=== PATIENT | male | born 1985 | race Caucasian/White ===

== ENCOUNTER 2018-06-06 07:26 | Inpatient (IN) | payer BC ==
[~2018-06-06] VITALS: Ht 188 cm; Wt 88.5 kg
[~2018-06-06 07:26] MED LIST: CLOBETASOL PROP0.055 TP; COLESTID 1GM1 G PO; DOXYCYCLINE 10100 MG PO; HUMIRA40 MG/0.8 IM; METHOTREXATE25 MG/M1 IM; NIZORAL SHAMPO120 M1 TP; PENTASA PO
[2018-06-06 07:57] LABS: BASO # 0.1 (0.0-0.2); BASO % 0.5 % (0.0-2.0); EOS # 0.3 (0.0-0.7); EOS % 2.5 % (0-4.0); GRAN # 8.4 (1.4-6.5); GRAN % 76.8 % (42.2-75.2); HEMATOCRIT 45.7 % (42.0-52.0); HEMOGLOBIN 15.5 g/dl (13.5-18.0); LYMPH # 1.7 (1.2-3.4); LYMPH % 15.5 % (20.0-51.0); MEAN CELL VOLUME 82 fl (80.0-100.0); MEAN CORPUSCULAR HEMOGLOBIN 28 pg (27.0-31.0); MEAN CORPUSCULAR HGB CONC 34 g/dl (33.0-37.0); MEAN PLATELET VOLUME 9.7 fl (7.4-10.4); MONO # 0.5 (0.1-0.6); MONO % 4.4 % (1.7-9.3); PLATELET COUNT 247 K/mm3 (130-400); REDCELL DISTRIBUTION WIDTH-CV 12.5 % (11.5-14.5)
[2018-06-06] MEDS ORDERED: ABSORICA30 MG PO (07:58)
[2018-06-06 08:12] LABS: ALBUMIN 4.6 gm/dL (3.5-5.0); BILIRUBIN,TOTAL 0.8 mg/dL (0.0-1.0); CALCIUM 9.6 mg/dL (8.4-10.2); CREATININE, serum 0.72 mg/dL (0.66-1.25); POTASSIUM 4.2 mmol/L (3.4-5.0); TOTAL PROTEIN 8.6 gm/dL (6.4-8.2)
[2018-06-06 08:14] LABS: C-REACTIVE PROTEIN 0.5 mg/dL (0.0-0.9)
[2018-06-06 10:40] LABS: COLLECTION METHOD CLEAN CATCH
[2018-06-06 10:50] LABS: MUCOUS Present /lpf; PH 5 (5-8); SQUAMOUS EPITHELIAL None Seen /hpf; URINE APPEARANCE Clear; URINE BACTERIA None Seen /hpf; URINE BILIRUBIN Negative (NEGATIVE); URINE BLOOD Negative (NEGATIVE); URINE COLOR Yellow; URINE GLUCOSE Negative (NEGATIVE); URINE KETONE Negative (NEGATIVE); URINE LEUKOCYTE ESTERASE Negative (NEGATIVE); URINE NITRATE Negative (NEGATIVE); URINE PROTEIN(semi-quant) Negative (NEGATIVE); URINE RBC 0-2 /hpf; URINE UROBILINOGEN Negative (NEGATIVE)
[2018-06-06 11:53] VITALS: BP 115/72; PULSE 69; TEMP 97.5
[2018-06-06 11:56] VITALS: BP 115/72; PULSE 84; TEMP 97.5
[2018-06-06 20:00] VITALS: BP 125/83; PULSE 60; TEMP 97.7
[2018-06-07] VITALS: BP 111/70; PULSE 96; TEMP 98.1
[2018-06-07 04:00] VITALS: BP 120/76; PULSE 62; TEMP 97.8
[2018-06-07 07:20] VITALS: BP 122/75; PULSE 62; TEMP 97.8
[2018-06-07 08:13] LABS: BASO % 0.1 % (0.0-2.0); GRAN # 8.1 (1.4-6.5); GRAN % 86.6 % (42.2-75.2); HEMATOCRIT 40.3 % (42.0-52.0); HEMOGLOBIN 13.7 g/dl (13.5-18.0); MEAN CELL VOLUME 82 fl (80.0-100.0); MEAN CORPUSCULAR HEMOGLOBIN 28 pg (27.0-31.0); MEAN CORPUSCULAR HGB CONC 34 g/dl (33.0-37.0); MEAN PLATELET VOLUME 10.1 fl (7.4-10.4); MONO # 0.2 (0.1-0.6); MONO % 1.8 % (1.7-9.3); PLATELET COUNT 222 K/mm3 (130-400); RED BLOOD COUNT 4.92 M/mm3 (4.20-5.60); REDCELL DISTRIBUTION WIDTH-CV 12.4 % (11.5-14.5)
[2018-06-07 08:24] LABS: CALCIUM 8.8 mg/dL (8.4-10.2); CREATININE, serum 0.63 mg/dL (0.66-1.25); POTASSIUM 3.9 mmol/L (3.4-5.0)
[2018-06-07 11:14] VITALS: BP 120/76; PULSE 61; TEMP 97.8
[2018-06-07 15:32] VITALS: BP 121/77; PULSE 61; TEMP 97.8
[2018-06-07 20:00] VITALS: BP 125/79; PULSE 73; TEMP 98
[2018-06-08] VITALS: BP 126/75; PULSE 76; TEMP 98.2
[2018-06-08 03:30] VITALS: BP 127/77; PULSE 78; TEMP 97.8
[2018-06-08 08:40] VITALS: BP 117/71; PULSE 70; TEMP 98
[2018-06-08 12:00] VITALS: BP 133/87; PULSE 81; TEMP 98.9
[2018-06-08] MEDS ORDERED: PREDNISONE20 MG PO (16:26)
[2018-06-08 16:37] VITALS: BP 126/79; PULSE 71; TEMP 98.1
== END 2018-06-08 17:00 | disposition home or self-care (01) | DRG 386 ==
LOC: COL.ER 07:26 → SURG 09:23
PROVIDERS: Family Medicine; Surgery
DX: K50.012 Crohn's disease of small intestine with intestinal obstruction (principal); K91.89 Other postprocedural complications and disorders of digestive system; Y83.2 Surgical operation with anastomosis, bypass or graft as the cause of abnormal reaction of the patient, or of later complication, without mention of misadventure at the time of the procedure
CPT/HCPCS: J1170; J1885; J2270; J2405; J2930; J7030; J7120; J7512; Q9967

== ENCOUNTER → 2018-07-10 | Outpatient (CLI) | payer BC ==
[~2018-07-10] MED LIST changes: +ABSORICA30 MG PO; +PREDNISONE20 MG PO
== END ==
LOC: COL.LAB 09:03
DX: K50.812 Crohn's disease of both small and large intestine with intestinal obstruction (principal); Z79.52 Long term (current) use of systemic steroids

== ENCOUNTER 2018-10-28 10:57 | Outpatient (CLI) | payer BC ==
[2009-02-10 13:01] VITALS: BP 117/66
[~2018-10-28] VITALS: Ht 188 cm; Wt 90.0 kg
[2018-10-28 11:15] VITALS: BP 113/79; PULSE 66; TEMP 98.3
[2018-10-28 11:15] LABS: HEMATOCRIT 43.9 % (42.0-52.0); HEMOGLOBIN 14.9 g/dl (13.5-18.0); MEAN CELL VOLUME 82 fl (80.0-100.0); MEAN CORPUSCULAR HEMOGLOBIN 28 pg (27.0-31.0); MEAN CORPUSCULAR HGB CONC 34 g/dl (33.0-37.0); MEAN PLATELET VOLUME 9.5 fl (7.4-10.4); PLATELET COUNT 257 K/mm3 (130-400); RED BLOOD COUNT 5.37 M/mm3 (4.20-5.60); REDCELL DISTRIBUTION WIDTH-CV 12.4 % (11.5-14.5)
[2018-10-28 11:25] LABS: ALBUMIN 4.2 gm/dL (3.5-5.0); BILIRUBIN UNCONJUGATED 0.5 mg/dL (0.0-1.1); BILIRUBIN,DIRECT 0.2 mg/dL (0.0-0.4); BILIRUBIN,TOTAL 0.7 mg/dL (0.0-1.0); TOTAL PROTEIN 7.8 gm/dL (6.4-8.2)
[2018-10-28] MEDS ORDERED: XYZAL5 MG PO (11:27)
[2018-10-28] MEDS ORDERED: FLONASEALLERGY NS (11:28)
[2018-10-28] MEDS ORDERED: ALLERGY DROPS SL (11:29)
[2018-10-28 12:43] VITALS: BP 121/75; PULSE 80; TEMP 98.3
--- NOTE | 2018-10-28 14:25 | NUR ---
Pt nena Linares well. Pt discharged per ambulation.
== END 2018-10-28 14:36 | disposition home or self-care (01) ==
LOC: EUO 10:57
PROVIDERS: Internal Medicine Gastroenterology
DX: K50.812 Crohn's disease of both small and large intestine with intestinal obstruction (principal)
CPT/HCPCS: J3358; J7050

== ENCOUNTER → 2019-02-06 | Outpatient (CLI) | payer BC ==
[~2019-02-06] MED LIST changes: +ALLERGY DROPS SL; +FLONASEALLERGY NS; +XYZAL5 MG PO
== END ==
LOC: COL.LAB 11:00
DX: Z13.9 Encounter for screening, unspecified (principal); Z79.899 Other long term (current) drug therapy

== ENCOUNTER → 2019-02-11 | Outpatient (CLI) | payer BC | LOC: COL.LAB 16:00 | DX: Z13.9 Encounter for screening, unspecified (principal); Z79.899 Other long term (current) drug therapy ==

== ENCOUNTER 2019-06-03 14:00 | Outpatient (RCR) | payer BC ==
[2009-02-10 13:01] VITALS: BP 117/66
[2019-04-17 13:24] LABS: HEMOGLOBIN 13.2 g/dl (13.5-18.0); MEAN CELL VOLUME 82 fl (80.0-100.0); MEAN CORPUSCULAR HEMOGLOBIN 27 pg (27.0-31.0); MEAN CORPUSCULAR HGB CONC 33 g/dl (33.0-37.0); MEAN PLATELET VOLUME 9.8 fl (7.4-10.4); PLATELET COUNT 286 K/mm3 (130-400); RED BLOOD COUNT 4.89 M/mm3 (4.20-5.60); REDCELL DISTRIBUTION WIDTH-CV 13.7 % (11.5-14.5)
[2019-04-17 13:35] LABS: BILIRUBIN,TOTAL 0.5 mg/dL (0.0-1.0); TOTAL PROTEIN 7.2 gm/dL (6.4-8.2)
[2019-04-17 13:59] LABS: BILIRUBIN UNCONJUGATED 0.3 mg/dL (0.0-1.1); BILIRUBIN,DIRECT 0.1 mg/dL (0.0-0.4)
[2019-04-17 15:03] VITALS: BP 101/65; PULSE 63; TEMP 98.3
[2019-04-17 15:43] VITALS: BP 114/67; PULSE 76; TEMP 98.3
[2019-05-01 13:32] LABS: HEMATOCRIT 41.2 % (42.0-52.0); HEMOGLOBIN 13.8 g/dl (13.5-18.0); MEAN CELL VOLUME 79 fl (80.0-100.0); MEAN CORPUSCULAR HEMOGLOBIN 27 pg (27.0-31.0); MEAN CORPUSCULAR HGB CONC 34 g/dl (33.0-37.0); MEAN PLATELET VOLUME 9.9 fl (7.4-10.4); PLATELET COUNT 264 K/mm3 (130-400); REDCELL DISTRIBUTION WIDTH-CV 13.3 % (11.5-14.5)
[2019-05-01 14:33] VITALS: BP 123/77; PULSE 71; TEMP 97.9
[~2019-06-03] VITALS: Ht 188 cm; Wt 91.8 kg
[2019-06-03 14:19] LABS: HEMATOCRIT 41.5 % (42.0-52.0); HEMOGLOBIN 13.7 g/dl (13.5-18.0); MEAN CELL VOLUME 80 fl (80.0-100.0); MEAN CORPUSCULAR HEMOGLOBIN 27 pg (27.0-31.0); MEAN CORPUSCULAR HGB CONC 33 g/dl (33.0-37.0); MEAN PLATELET VOLUME 10.2 fl (7.4-10.4); PLATELET COUNT 245 K/mm3 (130-400); RED BLOOD COUNT 5.17 M/mm3 (4.20-5.60); REDCELL DISTRIBUTION WIDTH-CV 12.9 % (11.5-14.5)
[2019-06-03] MEDS ORDERED: ENTYVIO IV (15:01)
[2019-06-03 15:36] VITALS: BP 115/71; PULSE 77; TEMP 97.8
[2019-06-03 15:48] VITALS: BP 115/72; PULSE 81
[2019-06-03 15:58] VITALS: BP 114/73; PULSE 75
[2019-06-03 16:08] VITALS: BP 109/76; PULSE 74
== END 2019-06-03 16:15 | disposition home or self-care (01) ==
LOC: EUO 14:00
PROVIDERS: Internal Medicine Gastroenterology
DX: K50.812 Crohn's disease of both small and large intestine with intestinal obstruction (principal); Z79.899 Other long term (current) drug therapy
CPT/HCPCS: J3380; J7050

== ENCOUNTER 2019-07-31 11:41 | Outpatient (CLI) | payer BC ==
[2009-02-10 13:01] VITALS: BP 117/66
[~2019-07-31] VITALS: Ht 188 cm; Wt 91.0 kg
[~2019-07-31 11:41] MED LIST changes: +ENTYVIO IV
[2019-07-31 12:11] LABS: HEMATOCRIT 42.2 % (42.0-52.0); HEMOGLOBIN 14.2 g/dl (13.5-18.0); MEAN CELL VOLUME 79 fl (80.0-100.0); MEAN CORPUSCULAR HEMOGLOBIN 27 pg (27.0-31.0); MEAN CORPUSCULAR HGB CONC 34 g/dl (33.0-37.0); MEAN PLATELET VOLUME 10.2 fl (7.4-10.4); PLATELET COUNT 222 K/mm3 (130-400); RED BLOOD COUNT 5.35 M/mm3 (4.20-5.60)
[2019-07-31 13:31] VITALS: BP 119/71; PULSE 69; TEMP 98
== END 2019-07-31 15:42 | disposition home or self-care (01) ==
LOC: EUO 11:41
PROVIDERS: Internal Medicine Gastroenterology
DX: K50.812 Crohn's disease of both small and large intestine with intestinal obstruction (principal); Z79.899 Other long term (current) drug therapy
CPT/HCPCS: J3380; J7050

== ENCOUNTER 2019-09-28 11:31 | Outpatient (CLI) | payer BC ==
[~2019-09-28] VITALS: Ht 188 cm; Wt 93.8 kg
[2019-09-28 12:00] LABS: HEMATOCRIT 42.6 % (42.0-52.0); HEMOGLOBIN 14.4 g/dl (13.5-18.0); MEAN CELL VOLUME 80 fl (80.0-100.0); MEAN CORPUSCULAR HEMOGLOBIN 27 pg (27.0-31.0); MEAN CORPUSCULAR HGB CONC 34 g/dl (33.0-37.0); MEAN PLATELET VOLUME 10.1 fl (7.4-10.4); PLATELET COUNT 236 K/mm3 (130-400); RED BLOOD COUNT 5.36 M/mm3 (4.20-5.60); REDCELL DISTRIBUTION WIDTH-CV 13.2 % (11.5-14.5)
[2019-09-28 12:03] VITALS: BP 124/72; PULSE 71; TEMP 98
[2019-09-28 13:10] VITALS: BP 117/72; PULSE 68; TEMP 97.8
== END 2019-09-28 13:25 | disposition home or self-care (01) ==
LOC: EUO 11:31
PROVIDERS: Internal Medicine Gastroenterology
DX: K50.812 Crohn's disease of both small and large intestine with intestinal obstruction (principal); Z79.899 Other long term (current) drug therapy
CPT/HCPCS: J3380; J7050

== ENCOUNTER 2020-01-18 14:58 | Outpatient (CLI) | payer BC ==
[2009-02-10 13:01] VITALS: BP 117/66
[~2020-01-18] VITALS: Ht 188 cm; Wt 93.4 kg
[2020-01-18 15:40] LABS: HEMOGLOBIN 14.3 g/dl (13.5-18.0); MEAN CELL VOLUME 79 fl (80.0-100.0); MEAN CORPUSCULAR HEMOGLOBIN 26 pg (27.0-31.0); MEAN CORPUSCULAR HGB CONC 33 g/dl (33.0-37.0); MEAN PLATELET VOLUME 10.2 fl (7.4-10.4); PLATELET COUNT 249 K/mm3 (130-400); RED BLOOD COUNT 5.46 M/mm3 (4.20-5.60)
[2020-01-18] MEDS ORDERED: PRILOSEC 20MG20 MG PO (16:46)
[2020-01-18 16:47] VITALS: BP 113/66; PULSE 65; TEMP 98
== END 2020-01-18 17:30 | disposition home or self-care (01) ==
LOC: EUO 14:58
PROVIDERS: Internal Medicine Gastroenterology
DX: K50.812 Crohn's disease of both small and large intestine with intestinal obstruction (principal); Z79.899 Other long term (current) drug therapy
CPT/HCPCS: J3380; J7050

== ENCOUNTER 2020-03-14 08:12 | Outpatient (CLI) | payer BC ==
[2009-02-10 13:01] VITALS: BP 117/66
[~2020-03-14] VITALS: Ht 188 cm; Wt 94.9 kg
[~2020-03-14 08:12] MED LIST changes: +PRILOSEC 20MG20 MG PO
[2020-03-14 08:58] LABS: HEMATOCRIT 42.7 % (42.0-52.0); HEMOGLOBIN 14.4 g/dl (13.5-18.0); MEAN CELL VOLUME 80 fl (80.0-100.0); MEAN CORPUSCULAR HEMOGLOBIN 27 pg (27.0-31.0); MEAN CORPUSCULAR HGB CONC 34 g/dl (33.0-37.0); PLATELET COUNT 222 K/mm3 (130-400); RED BLOOD COUNT 5.37 M/mm3 (4.20-5.60)
[2020-03-14 10:32] VITALS: BP 130/82; PULSE 72; TEMP 97.8
== END 2020-03-14 11:31 | disposition home or self-care (01) ==
LOC: EUO 08:12
PROVIDERS: Internal Medicine Gastroenterology
DX: K50.80 Crohn's disease of both small and large intestine without complications (principal); Z79.899 Other long term (current) drug therapy
CPT/HCPCS: J3380; J7050

== ENCOUNTER 2020-05-09 15:00 | Outpatient (CLI) | payer BC ==
[2009-02-10 13:01] VITALS: BP 117/66
[~2020-05-09] VITALS: Ht 188 cm; Wt 95.9 kg
[2020-05-09 15:18] LABS: HEMATOCRIT 40.9 % (42.0-52.0); HEMOGLOBIN 13.9 g/dl (13.5-18.0); MEAN CELL VOLUME 80 fl (80.0-100.0); MEAN CORPUSCULAR HEMOGLOBIN 27 pg (27.0-31.0); MEAN CORPUSCULAR HGB CONC 34 g/dl (33.0-37.0); MEAN PLATELET VOLUME 9.9 fl (7.4-10.4); PLATELET COUNT 236 K/mm3 (130-400); RED BLOOD COUNT 5.11 M/mm3 (4.20-5.60); REDCELL DISTRIBUTION WIDTH-CV 12.8 % (11.5-14.5)
[2020-05-09 16:29] VITALS: BP 113/74; PULSE 76; TEMP 98.4
[2020-05-09 17:00] VITALS: BP 112/75; PULSE 72; TEMP 98.4
== END 2020-05-09 17:00 | disposition home or self-care (01) ==
LOC: EUO 15:00
PROVIDERS: Internal Medicine Gastroenterology
DX: Z79.899 Other long term (current) drug therapy (principal)
CPT/HCPCS: J3380; J7050

== ENCOUNTER 2020-07-11 14:54 | Outpatient (CLI) | payer BC ==
[2009-02-10 13:01] VITALS: BP 117/66
[~2020-07-11] VITALS: Ht 188 cm; Wt 94.2 kg
[2020-07-11 15:12] LABS: HEMATOCRIT 43.6 % (42.0-52.0); HEMOGLOBIN 14.7 g/dl (13.5-18.0); MEAN CELL VOLUME 80 fl (80.0-100.0); MEAN CORPUSCULAR HEMOGLOBIN 27 pg (27.0-31.0); MEAN CORPUSCULAR HGB CONC 34 g/dl (33.0-37.0); MEAN PLATELET VOLUME 9.9 fl (7.4-10.4); PLATELET COUNT 235 K/mm3 (130-400); RED BLOOD COUNT 5.47 M/mm3 (4.20-5.60); REDCELL DISTRIBUTION WIDTH-CV 12.5 % (11.5-14.5)
[2020-07-11 16:12] VITALS: BP 119/79; PULSE 75; TEMP 98.1
[2020-07-11 16:38] VITALS: BP 130/88; PULSE 72; TEMP 98.1
== END 2020-07-11 16:39 | disposition home or self-care (01) ==
LOC: EUO 14:54
PROVIDERS: Internal Medicine Gastroenterology
DX: K50.812 Crohn's disease of both small and large intestine with intestinal obstruction (principal); Z79.899 Other long term (current) drug therapy
CPT/HCPCS: J3380; J7050

== ENCOUNTER 2020-08-30 14:51 | Outpatient (CLI) | payer BC ==
[2020-08-30 15:30] LABS: BASO # 0.1 (0.0-0.2); BASO % 0.9 % (0.0-2.0); EOS # 0.3 (0.0-0.7); EOS % 4.1 % (0-4.0); GRAN # 3.8 (1.4-6.5); GRAN % 57.9 % (42.2-75.2); HEMATOCRIT 42.2 % (42.0-52.0); HEMOGLOBIN 14.4 g/dl (13.5-18.0); LYMPH # 2.1 (1.2-3.4); LYMPH % 31.2 % (20.0-51.0); MEAN CELL VOLUME 80 fl (80.0-100.0); MEAN CORPUSCULAR HEMOGLOBIN 27 pg (27.0-31.0); MEAN CORPUSCULAR HGB CONC 34 g/dl (33.0-37.0); MEAN PLATELET VOLUME 9.9 fl (7.4-10.4); MONO # 0.4 (0.1-0.6); MONO % 5.6 % (1.7-9.3); PLATELET COUNT 236 K/mm3 (130-400); RED BLOOD COUNT 5.29 M/mm3 (4.20-5.60)
[2020-08-30 16:00] VITALS: BP 117/75; PULSE 78; TEMP 98.6
[2020-08-30 17:03] VITALS: BP 110/72; PULSE 71; TEMP 98.6
== END 2020-08-30 17:03 | disposition home or self-care (01) ==
LOC: EUO 14:51
PROVIDERS: Internal Medicine Gastroenterology
DX: K50.80 Crohn's disease of both small and large intestine without complications (principal); Z79.899 Other long term (current) drug therapy
CPT/HCPCS: J3380; J7050

== ENCOUNTER 2020-10-25 14:53 | Outpatient (CLI) | payer BC ==
[2020-10-25 15:38] LABS: BASO % 0.5 % (0.0-2.0); EOS # 0.2 (0.0-0.7); GRAN # 3.8 (1.4-6.5); GRAN % 59.5 % (42.2-75.2); HEMATOCRIT 42.2 % (42.0-52.0); HEMOGLOBIN 14.1 g/dl (13.5-18.0); LYMPH % 31.2 % (20.0-51.0); MEAN CELL VOLUME 80 fl (80.0-100.0); MEAN CORPUSCULAR HEMOGLOBIN 27 pg (27.0-31.0); MEAN CORPUSCULAR HGB CONC 33 g/dl (33.0-37.0); MONO # 0.4 (0.1-0.6); MONO % 5.6 % (1.7-9.3); PLATELET COUNT 253 K/mm3 (130-400); RED BLOOD COUNT 5.25 M/mm3 (4.20-5.60); REDCELL DISTRIBUTION WIDTH-CV 12.6 % (11.5-14.5)
[2020-10-25 16:16] VITALS: BP 123/84; PULSE 71; TEMP 98.2
== END 2020-10-26 15:13 | disposition home or self-care (01) ==
LOC: EUO 14:53
PROVIDERS: Internal Medicine Gastroenterology
DX: K50.80 Crohn's disease of both small and large intestine without complications (principal); Z79.899 Other long term (current) drug therapy
CPT/HCPCS: J3380; J7050

== ENCOUNTER 2020-12-29 15:10 | Outpatient (CLI) | payer BC ==
[2009-02-10 13:01] VITALS: BP 117/66
[~2020-12-29] VITALS: Ht 188 cm; Wt 94.5 kg
[2020-12-29 15:28] LABS: HEMATOCRIT 43.5 % (42.0-52.0); HEMOGLOBIN 14.9 g/dl (13.5-18.0); MEAN CELL VOLUME 81 fl (80.0-100.0); MEAN CORPUSCULAR HEMOGLOBIN 28 pg (27.0-31.0); MEAN CORPUSCULAR HGB CONC 34 g/dl (33.0-37.0); MEAN PLATELET VOLUME 9.9 fl (7.4-10.4); PLATELET COUNT 243 K/mm3 (130-400); RED BLOOD COUNT 5.36 M/mm3 (4.20-5.60); REDCELL DISTRIBUTION WIDTH-CV 12.6 % (11.5-14.5)
[2020-12-29] MEDS ORDERED: PRILOSEC 20MG20 MG PO (15:52)
[2020-12-29 16:20] VITALS: BP 123/74; PULSE 72; TEMP 97.8
[2020-12-29 16:35] VITALS: BP 112/76; PULSE 73
[2020-12-29 16:50] VITALS: BP 113/77; PULSE 79
== END 2020-12-29 17:17 | disposition home or self-care (01) ==
LOC: EUO 15:10
PROVIDERS: Internal Medicine Gastroenterology
DX: K50.80 Crohn's disease of both small and large intestine without complications (principal); Z79.899 Other long term (current) drug therapy
CPT/HCPCS: J3380; J7050

== ENCOUNTER 2021-02-23 14:50 | Outpatient (CLI) | payer BC ==
[2009-02-10 13:01] VITALS: BP 117/66
[2021-02-23 15:37] LABS: HEMATOCRIT 42.6 % (42.0-52.0); HEMOGLOBIN 14.5 g/dl (13.5-18.0); MEAN CELL VOLUME 80 fl (80.0-100.0); MEAN CORPUSCULAR HEMOGLOBIN 27 pg (27.0-31.0); MEAN CORPUSCULAR HGB CONC 34 g/dl (33.0-37.0); PLATELET COUNT 263 K/mm3 (130-400); RED BLOOD COUNT 5.31 M/mm3 (4.20-5.60); REDCELL DISTRIBUTION WIDTH-CV 12.7 % (11.5-14.5)
[2021-02-23 16:37] VITALS: BP 146/70; PULSE 77; TEMP 98.4
[2021-02-23] MEDS ORDERED: CARAFATE 1GM1 G PO (17:12)
== END 2021-02-23 18:38 | disposition home or self-care (01) ==
LOC: EUO 14:50
PROVIDERS: Internal Medicine Gastroenterology
DX: K50.80 Crohn's disease of both small and large intestine without complications (principal); Z79.899 Other long term (current) drug therapy
CPT/HCPCS: J3380; J7050

== ENCOUNTER 2021-04-21 14:50 | Outpatient (CLI) | payer BC ==
[2009-02-10 13:01] VITALS: BP 117/66
[~2021-04-21 14:50] MED LIST changes: +CARAFATE 1GM1 G PO
[2021-04-21 15:19] LABS: HEMATOCRIT 41.4 % (42.0-52.0); HEMOGLOBIN 14.1 g/dl (13.5-18.0); MEAN CELL VOLUME 81 fl (80.0-100.0); MEAN CORPUSCULAR HEMOGLOBIN 28 pg (27.0-31.0); MEAN CORPUSCULAR HGB CONC 34 g/dl (33.0-37.0); MEAN PLATELET VOLUME 9.8 fl (7.4-10.4); PLATELET COUNT 249 K/mm3 (130-400); RED BLOOD COUNT 5.11 M/mm3 (4.20-5.60); REDCELL DISTRIBUTION WIDTH-CV 12.4 % (11.5-14.5)
[2021-04-21 15:50] VITALS: BP 127/79; PULSE 70
[2021-04-21 16:53] VITALS: BP 122/84; PULSE 66; TEMP 97.1
== END 2021-04-21 17:34 | disposition home or self-care (01) ==
LOC: EUO 14:50
PROVIDERS: Internal Medicine Gastroenterology
DX: K50.80 Crohn's disease of both small and large intestine without complications (principal)
CPT/HCPCS: J3380; J7050

== ENCOUNTER 2021-06-16 14:45 | Outpatient (CLI) | payer BC ==
[2009-02-10 13:01] VITALS: BP 117/66
[~2021-06-16] VITALS: Ht 188 cm; Wt 92.4 kg
[2021-06-16 15:18] LABS: HEMATOCRIT 39.7 % (42.0-52.0); MEAN CELL VOLUME 79 fl (80.0-100.0); MEAN CORPUSCULAR HEMOGLOBIN 28 pg (27.0-31.0); MEAN CORPUSCULAR HGB CONC 35 g/dl (33.0-37.0); MEAN PLATELET VOLUME 10.1 fl (7.4-10.4); PLATELET COUNT 234 K/mm3 (130-400); RED BLOOD COUNT 5.04 M/mm3 (4.20-5.60); REDCELL DISTRIBUTION WIDTH-CV 12.7 % (11.5-14.5)
[2021-06-16 15:30] VITALS: BP 111/71; PULSE 72; TEMP 98.3
== END 2021-06-16 18:31 | disposition home or self-care (01) ==
LOC: EUO 14:45
PROVIDERS: Internal Medicine Gastroenterology
DX: K50.80 Crohn's disease of both small and large intestine without complications (principal); Z79.899 Other long term (current) drug therapy
CPT/HCPCS: J3380; J7050

== ENCOUNTER 2021-08-11 14:52 | Outpatient (CLI) | payer BC ==
[2009-02-10 13:01] VITALS: BP 117/66
[~2021-08-11] VITALS: Ht 188 cm; Wt 91.6 kg
[2021-08-11 15:24] LABS: BASO # 0.1 K/mm3 (0.0-0.2); BASO % 0.9 % (0.0-2.0); EOS # 0.3 K/mm3 (0.0-0.7); EOS % 3.8 % (0-4.0); GRAN # 4.2 K/mm3 (1.4-6.5); GRAN % 60.6 % (42.2-75.2); HEMOGLOBIN 14.1 g/dl (13.5-18.0); LYMPH % 28.9 % (20.0-51.0); MEAN CELL VOLUME 81 fl (80.0-100.0); MEAN CORPUSCULAR HEMOGLOBIN 28 pg (27.0-31.0); MEAN CORPUSCULAR HGB CONC 34 g/dl (33.0-37.0); MEAN PLATELET VOLUME 10.2 fl (7.4-10.4); MONO # 0.4 K/mm3 (0.1-0.6); MONO % 5.5 % (1.7-9.3); PLATELET COUNT 243 K/mm3 (130-400); RED BLOOD COUNT 5.05 M/mm3 (4.20-5.60); REDCELL DISTRIBUTION WIDTH-CV 12.7 % (11.5-14.5)
[2021-08-11 16:14] VITALS: BP 101/71; PULSE 73; TEMP 97.9
--- NOTE | 2021-08-11 17:00 | NUR ---
INT DC'd with catheter intact. Pt exits dept with steady gait.
== END 2021-08-11 17:31 | disposition home or self-care (01) ==
LOC: EUO 14:52
PROVIDERS: Internal Medicine Gastroenterology
DX: K50.80 Crohn's disease of both small and large intestine without complications (principal)
CPT/HCPCS: J3380; J7050

== ENCOUNTER 2021-10-06 14:50 | Outpatient (CLI) | payer BC ==
[2009-02-10 13:01] VITALS: BP 117/66
[~2021-10-06] VITALS: Ht 188 cm; Wt 93.8 kg
[2021-10-06 15:13] LABS: HEMATOCRIT 43.2 % (42.0-52.0); HEMOGLOBIN 14.7 g/dl (13.5-18.0); MEAN CELL VOLUME 80 fl (80.0-100.0); MEAN CORPUSCULAR HEMOGLOBIN 27 pg (27-31); MEAN CORPUSCULAR HGB CONC 34 g/dl (33.0-37.0); MEAN PLATELET VOLUME 9.6 fl (7.4-10.4); PLATELET COUNT 269 K/mm3 (130-400); RED BLOOD COUNT 5.39 M/mm3 (4.20-5.60); REDCELL DISTRIBUTION WIDTH-CV 12.5 % (11.5-14.5)
[2021-10-06 16:03] VITALS: BP 135/79; PULSE 81; TEMP 98.7
== END 2021-10-06 16:36 | disposition home or self-care (01) ==
LOC: EUO 14:50
PROVIDERS: Internal Medicine Gastroenterology
DX: K50.80 Crohn's disease of both small and large intestine without complications (principal)
CPT/HCPCS: J3380; J7050

== ENCOUNTER 2022-01-25 14:46 | Outpatient (CLI) | payer BC ==
[2009-02-10 13:01] VITALS: BP 117/66
[~2022-01-25] VITALS: Ht 188 cm; Wt 95.5 kg
[2022-01-25 15:22] LABS: MEAN CELL VOLUME 81 fl (80.0-100.0); MEAN CORPUSCULAR HEMOGLOBIN 28 pg (27-31); MEAN CORPUSCULAR HGB CONC 34 g/dl (33.0-37.0); MEAN PLATELET VOLUME 9.9 fl (7.4-10.4); PLATELET COUNT 239 K/mm3 (130-400); RED BLOOD COUNT 5.06 M/mm3 (4.20-5.60); REDCELL DISTRIBUTION WIDTH-CV 12.3 % (11.5-14.5)
[2022-01-25 17:01] VITALS: BP 128/91; PULSE 75; TEMP 98.3
== END 2022-01-25 17:01 ==
LOC: EUO 14:46
PROVIDERS: Internal Medicine Gastroenterology
DX: Z79.899 Other long term (current) drug therapy (principal)
CPT/HCPCS: J3380; J7050

== ENCOUNTER → 2022-03-14 | Outpatient (CLI) | payer BC ==
[2022-03-14 14:22] LABS: HEMATOCRIT 43.4 % (42.0-52.0); HEMOGLOBIN 15.2 g/dl (13.5-18.0); MEAN CELL VOLUME 81 fl (80.0-100.0); MEAN CORPUSCULAR HEMOGLOBIN 29 pg (27-31); MEAN CORPUSCULAR HGB CONC 35 g/dl (33.0-37.0); MEAN PLATELET VOLUME 10.1 fl (7.4-10.4); PLATELET COUNT 206 K/mm3 (130-400); RED BLOOD COUNT 5.34 M/mm3 (4.20-5.60); REDCELL DISTRIBUTION WIDTH-CV 12.6 % (11.5-14.5)
[2022-03-14 14:43] LABS: C-REACTIVE PROTEIN 0.17 mg/dL (0.00-0.50); CREATININE, serum 0.94 mg/dL (0.72-1.25)
[2022-03-14 15:23] LABS: EOSINOPHIL 26 % (0-4); LYMPHOCYTE 24 % (20.0-51.0); NEUTROPHILS 48 % (42.0-75.2); PLATELET ESTIMATE NORMAL (NORMAL)
== END ==
LOC: COL.LAB 13:37
PROVIDERS: Internal Medicine Gastroenterology
DX: K50.80 Crohn's disease of both small and large intestine without complications (principal)

== ENCOUNTER → 2022-03-15 | Outpatient (CLI) | payer BC | LOC: COL.RAD 09:31 | DX: K50.80 Crohn's disease of both small and large intestine without complications (principal); Z90.49 Acquired absence of other specified parts of digestive tract | CPT/HCPCS: Q9967 ==

== ENCOUNTER 2022-03-22 14:55 | Outpatient (CLI) | payer BC ==
[2009-02-10 13:01] VITALS: BP 117/66
[~2022-03-22] VITALS: Ht 188 cm; Wt 95.6 kg
[2022-03-22 15:15] VITALS: BP 129/88; PULSE 83; TEMP 97.7
[2022-03-22 15:21] LABS: HEMATOCRIT 42.3 % (42.0-52.0); HEMOGLOBIN 14.7 g/dl (13.5-18.0); MEAN CELL VOLUME 81 fl (80.0-100.0); MEAN CORPUSCULAR HEMOGLOBIN 28 pg (27-31); MEAN CORPUSCULAR HGB CONC 35 g/dl (33.0-37.0); MEAN PLATELET VOLUME 9.8 fl (7.4-10.4); PLATELET COUNT 237 K/mm3 (130-400); RED BLOOD COUNT 5.25 M/mm3 (4.20-5.60)
== END 2022-03-22 16:50 | disposition home or self-care (01) ==
LOC: EUO 14:55
PROVIDERS: Internal Medicine Gastroenterology
DX: K50.80 Crohn's disease of both small and large intestine without complications (principal)
CPT/HCPCS: J3380; J7050

== ENCOUNTER 2022-05-17 14:55 | Outpatient (CLI) | payer BC ==
[2009-02-10 13:01] VITALS: BP 117/66
[~2022-05-17] VITALS: Ht 188 cm; Wt 93.3 kg
[2022-05-17 15:26] LABS: HEMATOCRIT 42.4 % (42.0-52.0); HEMOGLOBIN 14.6 g/dl (13.5-18.0); MEAN CELL VOLUME 82 fl (80.0-100.0); MEAN CORPUSCULAR HEMOGLOBIN 28 pg (27-31); MEAN CORPUSCULAR HGB CONC 34 g/dl (33.0-37.0); MEAN PLATELET VOLUME 10.2 fl (7.4-10.4); PLATELET COUNT 232 K/mm3 (130-400); RED BLOOD COUNT 5.18 M/mm3 (4.20-5.60); REDCELL DISTRIBUTION WIDTH-CV 12.3 % (11.5-14.5)
[2022-05-17 15:31] VITALS: BP 149/77; PULSE 72; TEMP 98.9
[2022-05-17] MEDS ORDERED: ROBAXIN 75750 MG/TAB PO (15:33)
== END 2022-05-17 17:02 ==
LOC: EUO 14:55
PROVIDERS: Internal Medicine Gastroenterology
DX: K50.80 Crohn's disease of both small and large intestine without complications (principal)
CPT/HCPCS: J3380; J7050

== ENCOUNTER 2022-12-28 13:54 | Outpatient (CLI) | payer BC ==
[2009-02-10 13:01] VITALS: BP 117/66
[~2022-12-28 13:54] MED LIST changes: +ROBAXIN 75750 MG/TAB PO; +TAZAROTENE 0.1% TP
[2022-12-28 14:24] LABS: HEMOGLOBIN 15.2 g/dl (13.5-18.0); MEAN CELL VOLUME 81 fl (80.0-100.0); MEAN CORPUSCULAR HEMOGLOBIN 29 pg (27-31); MEAN CORPUSCULAR HGB CONC 35 g/dl (33.0-37.0); MEAN PLATELET VOLUME 10.2 fl (7.4-10.4); PLATELET COUNT 243 K/mm3 (130-400); REDCELL DISTRIBUTION WIDTH-CV 12.4 % (11.5-14.5)
[2022-12-28 14:58] VITALS: BP 125/81; PULSE 73; TEMP 98.2
== END 2022-12-28 15:47 ==
LOC: EUO 13:54
PROVIDERS: Internal Medicine Gastroenterology
DX: K50.80 Crohn's disease of both small and large intestine without complications (principal); Z79.899 Other long term (current) drug therapy
CPT/HCPCS: J3380; J7050

== ENCOUNTER 2023-02-22 13:53 | Outpatient (CLI) | payer BC ==
[~2023-02-22] VITALS: Ht 188 cm; Wt 93.7 kg
[2023-02-22 14:13] LABS: HEMATOCRIT 41.7 % (42.0-52.0); HEMOGLOBIN 14.6 g/dl (13.5-18.0); MEAN CELL VOLUME 81 fl (80.0-100.0); MEAN CORPUSCULAR HEMOGLOBIN 28 pg (27-31); MEAN CORPUSCULAR HGB CONC 35 g/dl (33.0-37.0); MEAN PLATELET VOLUME 9.8 fl (7.4-10.4); PLATELET COUNT 281 K/mm3 (130-400); RED BLOOD COUNT 5.17 M/mm3 (4.20-5.60); REDCELL DISTRIBUTION WIDTH-CV 12.4 % (11.5-14.5)
[2023-02-22] MEDS ORDERED: ACCUTANE20 M1 PO (14:23)
[2023-02-22 15:20] VITALS: BP 123/77; PULSE 80; TEMP 98.7
== END 2023-02-22 15:30 | disposition home or self-care (01) ==
LOC: EUO 13:53
PROVIDERS: Internal Medicine Gastroenterology
DX: K50.80 Crohn's disease of both small and large intestine without complications (principal)
CPT/HCPCS: J3380; J7050

== ENCOUNTER 2023-10-22 13:43 | Outpatient (CLI) | payer BC ==
[2009-02-10 13:01] VITALS: BP 117/66
[~2023-10-22] VITALS: Ht 188 cm; Wt 95.4 kg
[~2023-10-22 13:43] MED LIST changes: +ACCUTANE20 M1 PO
[2023-10-22 14:01] LABS: HEMATOCRIT 43.1 % (42.0-52.0); HEMOGLOBIN 15.2 g/dl (13.5-18.0); MEAN CELL VOLUME 80 fl (80.0-100.0); MEAN CORPUSCULAR HEMOGLOBIN 28 pg (27-31); MEAN CORPUSCULAR HGB CONC 35 g/dl (33.0-37.0); MEAN PLATELET VOLUME 9.7 fl (7.4-10.4); PLATELET COUNT 242 K/mm3 (130-400); RED BLOOD COUNT 5.38 M/mm3 (4.20-5.60); REDCELL DISTRIBUTION WIDTH-CV 12.7 % (11.5-14.5)
[2023-10-22] MEDS ORDERED: NS IV SCH (14:30)
[2023-10-22] MEDS ORDERED: VEDOLIZUMAB IV SCH (14:30)
[2023-10-22 14:33] VITALS: BP 118/74; PULSE 76; TEMP 98.3
== END 2023-10-22 15:09 | disposition home or self-care (01) ==
LOC: EUO 13:43
PROVIDERS: Internal Medicine Gastroenterology
DX: K50.80 Crohn's disease of both small and large intestine without complications (principal)
CPT/HCPCS: J3380; J7050

== ENCOUNTER 2023-12-19 13:56 | Outpatient (CLI) | payer BC ==
[2009-02-10 13:01] VITALS: BP 117/66
[2023-12-19 14:37] LABS: HEMATOCRIT 43.1 % (42.0-52.0); MEAN CELL VOLUME 81 fl (80.0-100.0); MEAN CORPUSCULAR HEMOGLOBIN 28 pg (27-31); MEAN CORPUSCULAR HGB CONC 35 g/dl (33.0-37.0); MEAN PLATELET VOLUME 10.1 fl (7.4-10.4); PLATELET COUNT 250 K/mm3 (130-400); RED BLOOD COUNT 5.33 M/mm3 (4.20-5.60); REDCELL DISTRIBUTION WIDTH-CV 12.6 % (11.5-14.5)
[2023-12-19 15:13] VITALS: BP 111/70; PULSE 80
[2023-12-19] MEDS ORDERED: VEDOLIZUMAB IV ONE (15:15)
[2023-12-19] MEDS ORDERED: NS IV ONE (15:15)
--- NOTE | 2023-12-19 15:56 | NUR ---
PT TOLERATED INFUSION WELL. VS REMAINED WITHIN NORMAL LIMITS. PT FREE FROM ACUTE CONCERNS AND COMPLAINTS UPON DISCHARGE. IV DISCONTINUED.
== END 2023-12-19 16:06 | disposition home or self-care (01) ==
LOC: EUO 13:56
PROVIDERS: Internal Medicine Gastroenterology
DX: K50.80 Crohn's disease of both small and large intestine without complications (principal)
CPT/HCPCS: J3380; J7050

== ENCOUNTER 2024-04-09 13:13 | Outpatient (CLI) | payer BC ==
[2009-02-10 13:01] VITALS: BP 117/66
[~2024-04-09] VITALS: Ht 188 cm; Wt 97.3 kg
[2024-04-09 13:38] LABS: HEMATOCRIT 41.6 % (42.0-52.0); HEMOGLOBIN 14.6 g/dl (13.5-18.0); MEAN CELL VOLUME 80 fl (80.0-100.0); MEAN CORPUSCULAR HEMOGLOBIN 28 pg (27-31); MEAN CORPUSCULAR HGB CONC 35 g/dl (33.0-37.0); MEAN PLATELET VOLUME 9.4 fl (7.4-10.4); PLATELET COUNT 232 K/mm3 (130-400); RED BLOOD COUNT 5.19 M/mm3 (4.20-5.60); REDCELL DISTRIBUTION WIDTH-CV 12.3 % (11.5-14.5)
[2024-04-09 14:06] VITALS: BP 117/72; PULSE 79; TEMP 97.9
[2024-04-09] MEDS ORDERED: NS IV ONE (14:15)
[2024-04-09] MEDS ORDERED: VEDOLIZUMAB IV ONE (14:15)
--- NOTE | 2024-04-09 14:56 | NUR ---
Pt tolerated entyvio without issue. IV DC'd, site wrapped with coban. He exits dept with steady gait. Free of complaints at discharge.
== END 2024-04-09 15:00 | disposition home or self-care (01) ==
LOC: EUO 13:13
PROVIDERS: Internal Medicine Gastroenterology
DX: K50.80 Crohn's disease of both small and large intestine without complications (principal)
CPT/HCPCS: J3380; J7050

== ENCOUNTER 2024-07-30 10:46 | Outpatient (CLI) | payer BC ==
[2009-02-10 13:01] VITALS: BP 117/66
[~2024-07-30] VITALS: Ht 188 cm; Wt 97.8 kg
[2024-07-30 11:06] LABS: HEMATOCRIT 44.5 % (42.0-52.0); HEMOGLOBIN 16.1 g/dl (13.5-18.0); MEAN CELL VOLUME 81 fl (80.0-100.0); MEAN CORPUSCULAR HEMOGLOBIN 29 pg (27-31); MEAN CORPUSCULAR HGB CONC 36 g/dl (33.0-37.0); MEAN PLATELET VOLUME 9.9 fl (7.4-10.4); PLATELET COUNT 223 K/mm3 (130-400); RED BLOOD COUNT 5.49 M/mm3 (4.20-5.60); REDCELL DISTRIBUTION WIDTH-CV 12.1 % (11.5-14.5)
[2024-07-30] MEDS ORDERED: VEDOLIZUMAB IV ONE (11:30)
[2024-07-30] MEDS ORDERED: NS IV ONE (11:30)
[2024-07-30 11:38] VITALS: BP 120/77; PULSE 84; TEMP 98.2
--- NOTE | 2024-07-30 12:17 | NUR ---
Pt tolerated infusion without issue. IV DC'd, site wrapped with coban. He exits dept with steady gait. Free of complaints at discharge.
== END 2024-07-30 12:17 | disposition home or self-care (01) ==
LOC: EUO 10:46
PROVIDERS: Internal Medicine Gastroenterology
DX: K50.80 Crohn's disease of both small and large intestine without complications (principal)
CPT/HCPCS: J3380; J7050